=== PATIENT | male | born 1970 | race Caucasian/White ===

== ENCOUNTER 2018-06-26 13:32 | Outpatient (CLI) | payer OTHER ==
--- NOTE | 2018-06-26 15:35 | XRAY Report ---
Reason: REACTIVE AIRWAY DISEASE Procedure Date: 06/26/2018 Accession Number: [id number] / [id number] Procedure: XRN - Chest 2 View X-Ray CPT Code: 58521 FULL RESULT: EXAM: CHEST RADIOGRAPHY EXAM DATE: 06/26/2018 01:50 PM. CLINICAL HISTORY: REACTIVE AIRWAY DISEASE. COMPARISON: None. TECHNIQUE: 1 view. FINDINGS: Lungs/Pleura: No focal opacities evident. No pleural effusion. No pneumothorax. Normal volumes. Mediastinum: Heart and mediastinal contours are unremarkable. IMPRESSION: No evidence of acute thoracic process RADIA
== END 2018-06-26 13:33 | disposition home or self-care (01) ==
LOC: DI.N 13:32
PROVIDERS: ATTEND Nurse Practitioner
DX: J45.909 Unspecified asthma, uncomplicated (principal)
CPT/HCPCS: 71046

== ENCOUNTER 2019-01-19 08:00 | Outpatient (CLI) | payer MEDICAID ==
[2019-01-19 20:33] LABS: H. PYLORIS ANTIGEN STL NEGATIVE (Negative)
== END 2019-01-19 23:59 | disposition home or self-care (01) ==
LOC: LAB.R 08:00
PROVIDERS: ATTEND Family Medicine
DX: K52.9 Noninfective gastroenteritis and colitis, unspecified (principal)
CPT/HCPCS: 81599; 82274; 83630; 87045; 87046; 87177; 87209; 87329; 87338; 87493